=== PATIENT | male | born 1950 | race Caucasian/White ===

== ENCOUNTER 2024-02-14 12:34 | Outpatient (CLI) | payer OTHER | END 2024-02-14 23:59 | disposition home or self-care (01) | LOC: CARD DIAG 12:34 | PROVIDERS: ATTEND Chiropractor | DX: I08.0 Rheumatic disorders of both mitral and aortic valves (principal); R00.1 Bradycardia, unspecified; I25.89 Other forms of chronic ischemic heart disease | CPT/HCPCS: 93306 ==